=== PATIENT | male | born 1990 | race Caucasian/White ===

== ENCOUNTER 2017-07-07 15:18 | Emergency (ER) | payer OTHER ==
[~2017-07-07] VITALS: Ht 180.3 cm; Wt 80.1 kg
[2017-07-07] MEDS ORDERED: MOTRIN600 MG PO (17:20)
[2017-07-07] MEDS ORDERED: NORCO 5/3251 TABLET PO (17:20)
[2017-07-07] MEDS ORDERED: KEFLEX500 MG PO (17:20)
[2017-07-07 17:45] VITALS: BP 143/84
== END 2017-07-07 17:46 | disposition home or self-care (01) ==
LOC: EME 15:18
DX: S62.634B Displaced fracture of distal phalanx of right ring finger, initial encounter for open fracture (principal); W23.0XXA Caught, crushed, jammed, or pinched between moving objects, initial encounter; Y99.0 Civilian activity done for income or pay; Z23 Encounter for immunization
CPT/HCPCS: 99281; 99283